=== PATIENT | male | born 1960 | race Caucasian/White ===

== ENCOUNTER 2020-09-14 10:05 | Emergency (ER) | payer BC, SELFPAY ==
--- NOTE | ~2020-09-14 | XR_ITS ---
EXAMINATION: XR knee RT min 4V DATE: 09/14/2020 10:46 INDICATION: Patellar pain and popping out of place TECHNIQUE: Anteroposterior, oblique, sunrise and crosstable lateral views of the right knee were obta ined COMPARISON: None. FINDINGS: Alignment is normal. No fracture. Joint spaces appear normal. Tiny patellar marginal osteophytes. Mo derate-sized enthesophyte at the patellar insertion of the distal quadriceps tendon. No joint effusio n/layering lipohemarthrosis. Anterior soft tissue swelling extending from the patellar to the anterio r tibial tubercle. IMPRESSION: 1. No right knee joint effusion or acute osseous abnormality. Reviewed, dictated and finalized at location B.
--- NOTE | 2020-09-14 10:12 | ED.LOWEXIN ---
HPI - Extremity Injury (Lower) General Chief Complaint: Extremity Injury, Lower Stated Complaint: right leg pain Time Seen by Provider: 09/14/20 10:11 History of Present Illness HPI Narrative: He has had RLE pain for quite some time. Yesterday he felt a pop in the right knee and had sudden worsening of the pain. It is primarily located in the lateral side of the knee at this time. Worse with knee extension. Related Data Home Medications Medication Instructions Recorded Confirmed aspirin 81 mg tablet,delayed See Rx Instructions PO DAILY 07/14/20 release atorvastatin 40 mg tablet See Rx Instructions PO DAILY 07/14/20 metoprolol tartrate 25 mg tablet See Rx Instructions .ROUTE .COMPLEX 07/14/20 minerals See Rx Instructions .ROUTE .COMPLEX 07/14/20 acuyrtxn-yhx-nmjma acid 300 1 tablet PO DAILY 07/14/20 mcg-lycopene 600 mcg-lutein 300 mcg tablet Allergies Allergy/AdvReac Type Severity Reaction Status Date / Time No Known Allergies Allergy Verified 09/14/20 10:27 Review of Systems Review of Systems: All systems reviewed & are unremarkable except as noted in HPI and below Constitutional: Constitutional: Denies chills and Denies fever(s) Cardiovascular: Cardiovascular: Denies chest pain Respiratory: Respiratory: Denies dyspnea Musculoskeletal: Musculoskeletal: Denies back pain Neurologic: Denies numbness and Denies weakness [facility] Past Medical History Medical History Bloating Chronic pain of both feet Dizziness Flatulence Forgetfulness Heart attack (~01/09/15) Sinus problem Family History Family History Father , 86 Heart failure Mother No problems noted. Social History Social History Social History: Caffeine = 1 cup daily Years smoked: 15 Smoking status: Former smoker Tobacco type: cigarettes Smoking end date: 02/10/15 Alcohol intake: never Substance use: never Exam Const: General: no acute distress and alert Orientation/consciousness: patient oriented x3 HENMT: Head: normal to inspection Cardio: Other: 2 + right DP Skin: General skin exam: normal color Rashes: no rashes Wounds: no wounds Neuro: General: patient oriented x3, moves all extremities and no focal motor deficits Speech: normal speech Extrem: Other: minimal edema anterior to patellar tendon Course Vital Signs Vital signs: Vital Signs Temperature 36.4 C L 09/14/20 10:21 Pulse Rate 66 09/14/20 10:21 Respiratory Rate 16 09/14/20 10:21 Blood Pressure 133/87 09/14/20 10:21 Pulse Oximetry 99 09/14/20 10:21 Temperature 36.4 C L 09/14/20 10:21 Pulse Rate 57 L 09/14/20 12:29 Respiratory Rate 18 09/14/20 12:29 Blood Pressure 128/78 09/14/20 12:29 Pulse Oximetry 95 09/14/20 12:29 Procedures Joint Aspiration/Injection Joint Asp./Inject. 1: Joint Aspiration Date: 09/14/20 Joint Aspiration Time: 12:03 Side of body: right Joint Aspirated: other (patella tendon) Ultrasound Guidance: No Skin Prep: Chlorhexidine Local Anesthetic: bupivacaine 0.5% Amount of anesthesia used (mL): 2 Needle Size Used: Other (27) Medication Injected, if any: Triamcinolone Acetate (40) Amount of medication injected (mL): 1 Patient Tolerated Procedure: well Complications: none MDM - Extremity Injury (Lower) MDM Narrative Medical decision making narrative: He has soft tissue swelling and tenderness over the petallar tendon. I suspect tendonitis. Medical Records Attestation: I reviewed the patient's medical records. Lab Data Attestation: I reviewed the patient's lab results. Imaging Data Radiologist's impression: ITS Impressions Knee X-Ray 09/14/20 10:49 IMPRESSION: 1. No right knee joint effusion or acute osseous
[2020-09-14 10:21] VITALS: BP 133/87; PULSE 66; RESP 16; TEMP 36.4; O2SAT 99
[2020-09-14 12:29] VITALS: BP 128/78; PULSE 57; RESP 18; O2SAT 95
== END 2020-09-14 12:31 | disposition home or self-care (01) ==
PROVIDERS: Emergency Provider Emergency Medicine; PCP Emergency Medicine
DX: M76.51 Patellar tendinitis, right knee (principal); I25.2 Old myocardial infarction; Z79.82 Long term (current) use of aspirin; Z87.891 Personal history of nicotine dependence
CPT/HCPCS: 20610; 73564; 99283

== ENCOUNTER 2020-11-07 11:05 | Outpatient (CLI) | payer BC, SELFPAY ==
--- NOTE | ~2020-11-07 | US_ITS ---
EXAMINATION: US carotid duplex BI DATE: 11/07/2020 11:39 INDICATION: Dizziness. TECHNIQUE: Grayscale, color Doppler, and pulsed Doppler images of the cervical carotid arteries were obtained. The degree of vessel stenosis is placed in one of the following categories: normal, <50%, 5 0-69%, >=70% but less than near-occlusion, near-occlusion, or total occlusion. Note that percent sten osis relative to normal distal artery lumen diameter is indirectly measured from velocity measurement s as described by Jose, et al. Radiology 2003; 229:340-346. COMPARISON: None. FINDINGS: RIGHT: The right common carotid artery (CCA) peak systolic velocity (PSV) is 79 cm/s. The right internal car otid artery (ICA) PSV is 58 cm/s. The right ICA end-diastolic velocity (EDV) is 15 cm/s. The right IC A/CCA PSV ratio is 0.7. Grayscale and color Doppler images yield an estimate of <50% diameter reducti on from plaque in the ICA. There is antegrade flow in the right vertebral artery. LEFT: The left CCA PSV is 73 cm/s. The left ICA PSV is 61 cm/s. The left ICA EDV is 12 cm/s. The left ICA/C CA PSV ratio is 0.8. Grayscale and color Doppler images yield an estimate of <50% diameter reduction from plaque in the ICA. There is antegrade flow in the left vertebral artery. IMPRESSION: 1. <50% stenosis in the right internal carotid artery. 2. <50% stenosis in the left internal carotid artery. Reviewed, dictated and finalized at location A. NESS ANALYST MANAGER
== END 2020-11-07 11:06 | disposition home or self-care (01) ==
PROVIDERS: PCP Emergency Medicine; Visit Provider Emergency Medicine
DX: R09.89 Other specified symptoms and signs involving the circulatory and respiratory systems (principal)
CPT/HCPCS: 93880

== ENCOUNTER → 2020-11-23 09:24 | Outpatient (CLI) | payer BC, SELFPAY ==
--- NOTE | ~2020-11-23 | MR_ITS ---
EXAMINATION: MR knee RT wo con DATE: 11/23/2020 10:16 INDICATION: Right knee pain. TECHNIQUE: Magnetic resonance imaging (MRI) of the right knee was performed without intravenous contr ast. Sequences included axial PD-weighted FS FSE, coronal PD-weighted FSE and PD-weighted FS FSE, sag ittal PD-weighted FSE, and sagittal T2-weighted FS FSE. COMPARISON: Right knee radiographs 09/14/2020 FINDINGS: Medial compartment: There is a complex tear of posterior horn of medial meniscus. There is extrusion of the body segment. There is cartilage surface irregularity of femoral condyle. There is shallow partial-thickness carti tiny loss of tibial condyle, worst at the central and anteromedial articular surface. There is a subc hondral fracture of medial tibial plateau with low signal fracture lines and bone marrow edema. No co rtical depression. Lateral compartment: Lateral meniscus is normal. There is cartilage surface irregularity of tibial condyle. There is deep partial thickness cartilage loss of femoral condyle involving the central articular surface. Patellofemoral compartment: There is deep partial thickness cartilage loss of patellar medial facet, median ridge, and lateral fa cet with mild subchondral edema-like marrow signal intensity. There is deep partial thickness cartila ge loss of central and lateral trochlea. Ligaments and tendons: The anterior and posterior cruciate ligaments are normal. Medial collateral ligament is normal. There are changes of prior sprain of fibular collateral ligament characterized by thickening and increased signal intensity proximally. There is mild patellar tendinopathy. Fluid: There is a moderate-sized knee joint effusion. There is mild prepatellar and superficial infrapatella r bursitis. IMPRESSION: 1. Subchondral fracture of medial tibial condyle. 2. Moderate chondrosis of lateral and patellofemoral compartments and mild chondrosis of medial vianey rtment. 3. Moderate-sized knee joint effusion. Reviewed, dictated and finalized at location A. AGE MIXER IMPRESSION: 1. Subchondral fracture of medial tibial condyle. 2. Moderate chondrosis of lateral and patellofemoral compartments and mild shantal drosis of medial compartment. 3. Moderate-sized knee joint effusion.
== END ==
PROVIDERS: PCP Emergency Medicine; Visit Provider Orthopaedic Surgery
DX: M25.461 Effusion, right knee (principal)
CPT/HCPCS: 73721

== ENCOUNTER 2025-04-27 11:30 | Outpatient (CLI) | payer MEDICARE, SELFPAY ==
--- NOTE | ~2025-04-27 | XR_ITS ---
Right Knee Technique: AP, lateral, and sunrise views were obtained. Clinical History: Arthritis Findings: No fracture or dislocation is seen. There is moderate degenerative change of the medial and patellofemoral compartments. There is mild degenerative change of the lateral compartment.. Soft tis sues are unremarkable. No joint effusion is seen. Impression: Degenerative change, as detailed above. Reviewed, dictated and finalized at location M. Impression: Degenerative change, as detailed above.
--- NOTE | ~2025-04-27 | XR_ITS ---
Left Knee Technique: AP and lateral views were obtained. Clinical History: Arthritis Findings: No fracture or dislocation is seen. There is moderate to advanced degenerative change of th e medial compartment, with medial joint ostomy formation and medial compartment narrowing. There is m oderate to advanced degenerative change of the patella femoral compartment. There is mild degenerativ e change of the lateral compartment. Soft tissues are unremarkable. No joint effusion is seen. 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 Reviewed, dictated and finalized at location M. Impression: Tricompartmental osteoarthritis, moderate to severe at the medial and patellofe moral compartment.
--- OUTSIDE RECORDS SUMMARY | 2025-04-27 13:07 | XMS_ITS | Referral Summary ---
Author Organization [facility] [address] [address] [place] [address] [address] [place] [address] Care Team Providers Care Spray Machine Tender Name Role Phone Aubrey Logan MD Primary Care Provide r Encounters Date Type Department Care Team Description 04/14/2025 Telephone [facility] Cardiology [address] [place] [address] [address] [place] [address] Won Mejia MD 04/14/2025 Results Follow-Up [facility] Cardiology [address] [facility] [address] [place] [address] Won Mejia MD Comprehensive metabolic panel, Hemoglobin A1c 04/01/2025 10:45 AM CDT Office Visit [facility] Cardiology [address] [place] [address] [address] [place] [address] Won Mejia MD 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 (Primary Dx); Hyperlipidemia LDL goal <70; Hypertriglyceridemia; Morbid obesity with BMI of 40.0-44.9, adult (HCC); Elevated glucose; Bilateral lower extremity edema from Last 3 Months Allergies No known active allergies Medications aspirin 81 mg tablet take 1 tablet by oral route every day 0 0 5 Active multivitamin tablet tablet take 1 tablet by oral route every day with food 0 0 5 Active nitroglycerin (NITROSTAT) 0.[address] 1 tablet by sublingual route at the 1st sign of attack; may repeat every 5 min until relief; if pain persists after 3 tablets in 15 min, prompt medical attention is recommended 25 2 5 Active losartan (COZAAR) 25 mg tabletIndicati ons: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 Take 1 tablet (25 mg total) by mouth daily 30 tablet 11 5 04/01/20 26 Active atorvastatin (LIPITOR) 40 mg tablet Take 1 tablet (40 mg total) by mouth daily 90 tablet 3 5 Active furosemide (LASIX) 20 mg tabletIndicati ons:Bilateral lower extremity edema Take 1 tablet (20 mg total) by mouth daily as needed (for swelling) 90 tablet 3 5 Active metoprolol tartrate (LOPRESSOR) 25 mg immediate release tablet Take 1 tablet (25 mg total) by mouth 2 (two) times a day 180 tablet 3 5 Active furosemide (LASIX) 20 mg tabletIndicati ons:Bilateral lower extremity edema TAKE 1 TABLET(20 MG) BY MOUTH DAILY NEEDED FOR SWELLING 30 tablet 3 04/01/20 25 Discontin ued(Reord er) atorvastatin (LIPITOR) 40 mg tablet TAKE 1 TABLET(40 MG) BY MOUTH DAILY 90 tablet 2 5 04/01/20 25 Discontin ued(Reord er) metoprolol tartrate (LOPRESSOR) 25 mg immediate release tablet TAKE 1 TABLET(25 MG) BY MOUTH TWICE DAILY 180 tablet 5 04/01/20 25 Discontin ued(Reord er) Active Problems Problem Noted Date Diagnosed Date Elevated glucose 04/01/2025 Bilateral lower extremity edema 11/03/2022 Morbid obesity 11/03/2022 Benign paroxysmal vertigo of left ear 12/15/2020 Assessment & Plan (12/15/2020 12:11 PM TUBING ASSEMBLER): Patient describes a 2 year history of increasing rotatory vertigo with nausea when laying specifically on his back turning his head to the left. He denies accompanying tinnitus or hearing loss or other bulbar or neurological dysfunction. His neurological examination today including Hallpike [place] testing is negative. Historically a symptoms be most suggestive of positional vertigo given the stereotyped reproducible nature of his body position that precipitates the symptoms. I will prescribe a course of physical therapy for Larry maneuver training. I will see him back in the office in 6 months time for reassessment. Hypertriglyceridemia 11/04/2019 Morbid obesity with BMI of 40.0-44.9, adult 10/19 History of tobacco use 10/08/2017 Coronary artery disease of n ative artery of campo heart with stable angina pectoris 01/28/2015 Overview (02/23/2017): CAD (coronary artery disease) History of myocardial infarction 01/28/2015 Overview (02/23/2017): History of ST elevation myocardial infarction (STEMI) Hyperlipidemia LDL goal <70 01/28/2015 Overview (02/23/2017): Hyperlipidemia Resolved Problems Problem Noted Date Diagnosed Date Resolved Date Tobacco dependence syndrome 01/28/2015 10/08/2017 Overview (02/23/2017): Tobacco abuse Social History Tobacco Use Types Packs/Day Years Used Date Smoking Tobacco: Former Cigarettes Q uit: 01/18/2015 Smokeless Tobacco: Never Tobacco Cessation:Counseling Given: Not Answered Alcohol Use Standard Drinks/Week Comments No 0 (1 standard drink = 0.6 oz pur e alcohol) Sex and Gender Information Value Date Recorded Sex Assigned at Not on file Legal Sex Male 3:35 AM TUBING ASSEMBLER Gender Identity Not on file Sexual Orientation Not on file Last Filed Vital Signs Vital Sign Reading Time Taken Comments Blood Pressure 152/90 04/01/2025 11:05 AM CDT Pulse 68 04/01/2025 11:05 AM CDT Temperature 36.4 C (97.5 F) 12/15/2020 11:30 AM TUBING ASSEMBLER Respiratory Rate - - Oxygen Saturation 95% 04/01/2025 11:05 AM CDT Inhaled Oxygen Concentration - - Weight 133.4 kg (294 lb) 04/01/2025 11:05 AM CDT Height 180.3 cm (5' 11) 04/01/2025 11:05 AM CDT Body Mass Index 41 04/01/2025 11:05 AM CDT Plan of Treatment Not on file Procedures Procedure Name Priority Date/Time Associated Diagnosis Comments HEMOGLOBIN A1C Routine 04/10/2025 12:02 PM CDT Hyperlipidemia LDL goal <70 Elevated glucose COMPREHENSIVE METABOLIC PANEL Routine 04/10/2025 12:02 PM CDT Elevated glucose POCT LIPID PANEL Routine 04/01/2025 11:0 8 AM CDT 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 For someone with known diabetes, a value <7% indicates that their diabetes is well controlled and a value greater than or equal to 7% indicates suboptimal control. A1c targets should be individualized based on duration of diabetes, age, comorbid conditions, and other considerations. Currently, no consensus exists regarding use of hemoglobin A1c for diagnosis of diabetes for children. Blood 04/10/2025 12:0 2 PM CDT 04/10/2025 12:02 PM CDT us Won Mejia MD LAB BLOOD ORDERABLES Vi l Result [facility] [address] [place] [address] * (ABNORMAL) Comprehensive metabolic panel (04/10/2025 12:02 PM CDT) Glucose 154(H) 65 - 99 mg/dL [facility] Comment: Fasting reference interval For someone without known diabetes, a glucose value >125 mg/dL indicates that they may have diabetes and this should be confirmed with a follow-up test. BUN 11 7 - 25 mg/dL [facility] Creatinine 0.83 0.70 - 1.35 mg/dL [facility] eGFR 96 > OR = 60 mL/min/1.7 3m2 [facility] BUN/creat ratio SEE NOTE: 6 - 22 (calc) [facility] Comment: Not Reported: BUN and Creatinine are within reference range. Sodium 141 135 - 146 mmol/L [facility] Potassium, pl 4.3 3.5 - 5.3 mmol/L [facility] Chloride 100 98 - 110 mmol/L [facility] CO2 34(H) 20 - 32 mmol/L [facility] Calcium 9.4 8.6 - 10.3 mg/dL [facility] Protein, sr 6.7 6.1 - 8.1 g/dL [facility] Albumin 4.3 3.6 - 5.1 g/dL [facility] GLOBULIN 2.4 1.9 - 3.7 g/dL (calc) [facility] Alb/glob ratio 1.8 1.0 - 2.5 (calc) [facility] Bilirubin, total 0.7 0.2 - 1.2 mg/dL [facility] Alk phos 107 35 - 144 U/L [facility] AST 19 10 - 35 U/L [facility] ALT (SGPT) 28 9 - 46 U/L [facility] Blood 04/10/2025 12:0 2 PM CDT 04/10/2025 12:02 PM CDT Won Mejia MD LAB BLOOD ORDERABLES Vi l Result [facility] [id number] [place] [id number] * (ABNORMAL) POCT lipid panel (04/01/2025 11:08 AM CDT) Cholesterol, POC 122 <200 MG/DL HDL, POC 25(A) >=40 mg/dL Triglycerides, POC 169(A) <=149 mg/dL LDL Cholesterol POC 63 <=129 mg/dL Chol/HDL Ratio, POC 2.5 NONE Non-HDL Cholesterol, POC 97 NONE mg/dL Cholesterol Total, POC 122 30 - 199 mg/dL Capillary blood 04/01/2025 1 1:08 AM CDT Won Mejia MD POINT OF CARE TEST ORDERA BLES Final Result from Last 3 Months Insurance [facility] MEDICARE ADVANTAGE [facility] Address: [address] [address] Care Teams Spray Machine Tender Relationship Specialty Start Date End Date Aubrey Logan MD [address] [place] [address] PCP - General Emergency Medicine 10/04/20
--- OUTSIDE RECORDS SUMMARY | 2025-04-27 13:07 | XMS_ITS | Encounter Summary ---
Author Organization [facility] Healthcare Address [address] [place] [address] Care Team Providers Care Ferry Captain Name Role Phone Aubrey Logan MD Primary Care Provide r Encounter Details Date Type Department Care Team (Latest Contact Info) Description 04/14/2025 Results Follow-Up [facility] Cardiology [address] [address] Won Mejia MD [address] [facility] [address]ST[address] [facility] [place], [place] [id number] Comprehensive metabolic panel, Hemoglobin A1c Social History Tobacco Use Types Packs/Day Years Used Date Smoking Tobacco: Former Cigarettes Q uit: 01/18/2015 Smokeless Tobacco: Never Alcohol Use Standard Drinks/Week Comments No 0 (1 standard drink = 0.6 oz pur e alcohol) Sex and Gender Information Value Date Recorded Sex Assigned at Not on file Legal Sex Male 3:35 AM WAIT STAFF Gender Identity Not on file Sexual Orientation Not on file documented as of this encounter Plan of Treatment Not on file documented as of this encounter Visit Diagnoses Not on filedocumented in this encounter Care Teams Ferry Captain Relationship Specialty Start Date End Date Aubrey Logan MD [address] [place] [address] PCP - General Emergency Medicine 10/04/20 documented as of this encounter
--- OUTSIDE RECORDS SUMMARY | 2025-04-27 13:07 | XMS_ITS | Clinical Summary ---
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 He denies accompanying tinnitus or hearing loss or other bulbar or neurological dysfunction. His neurological examination today including Hallpike [place] testing is negative. Historically a symptoms be [...] artery disease of n ative artery of little shell tribe heart with stable angina pectoris 01/28/2015 Overview (02/23/2017): CAD (coronary artery disease) History of myocardial infarction 01/28/2015 Overview (02/23/2017): History of ST elevation myocardial infarction (STEMI) Hyperlipidemia LDL goal <70 01/28/2015 Overview (02/23/2017): Hyperlipidemia Resolved Problems Problem Noted Date Diagnosed Date Resolved Date Tobacco dependence syndrome 01/28/2015 10/08/2017 Overview (02/23/2017): Tobacco abuse Encounters Date Type Department Care Team Description 04/14/2025 Telephone [facility] Cardiology [address] [place] [address] Won Mejia MD 04/14/2025 Results Follow-Up [facility] Cardiology [address] [facility] [address] [place] [address] Won Mejia MD Comprehensive metabolic panel, Hemoglobin A1c 04/01/2025 10:45 AM CDT Office Visit [facility] Cardiology [address] [place] [address] Won Mejia MD Coronary artery disease of little shell tribe artery of little shell tribe heart with stable angina pectoris (Primary Dx); Hyperlipidemia LDL goal <70; Hypertriglyceridemia; Morbid obesity with BMI of 40.0-44.9, adult (HCC); Elevated glucose; Bilateral lower extremity edema from Last 3 Months Surgical History Surgery Date Site/Laterality Comments CARDIAC STENT PLACEMENT Medical History Medical History Date Comments Hx Other Medical CAD status post inferior posteriorSTEMI with WALE t; Comments: MAF 01/28/2015 - Family History Medical History Relation Name Comments Coronary artery disease Brother 1 Diabetes Brother 1 No Known Problems Brother 2 Diabetes Father Diabetes mellit ; Heart failure Father Other Mother Alive and well; Arthritis Sister 1 Obesity Sister 1 Osteoporosis Sister 1 No Known Problems Sister 2 Relation Name Status Comments Brother 1 Alive Brother 2 Alive Father Mother Alive Sister 1 Alive Sister 2 Alive Social History Tobacco Use Types Packs/Day Years Used Date Smoking Tobacco: Former Cigarettes Q uit: 01/18/2015 Smokeless Tobacco: Never Tobacco Cessation:Counseling Given: Not Answered Alcohol Use Standard Drinks/Week Comments No 0 (1 standard drink = 0.6 oz pur e alcohol) Sex and Gender Information Value Date Recorded Sex Assigned at Not on file Legal Sex Male 3:35 AM HEALTHCARE APPLICATIONS ANALYST Gender Identity Not on file Sexual Orientation Not on file Obstetrics History Last Filed Vital Signs Vital Sign Reading Time Taken Comments Blood Pressure 152/90 04/01/2025 11:05 AM CDT Pulse 68 04/01/2025 11:05 AM CDT Temperature 36.4 C (97.5 F) 12/15/2020 11:30 AM HEALTHCARE APPLICATIONS ANALYST Respiratory Rate - - Oxygen Saturation 95% 04/01/2025 11:05 AM CDT Inhaled Oxygen Concentration - - Weight 133.4 kg (294 lb) 04/01/2025 11:05 AM CDT Height 180.3 cm (5' 11) 04/01/2025 11:05 AM CDT Body Mass Index 41 04/01/2025 11:05 AM CDT Plan of Treatment Health Maintenance Due Date Last Done Comments Colon Cancer Screening-Colonoscopy 1958 Depression Screening 1958 Fall Risk Assessment 1960 Hepatitis C Screening 1960 Prostate Cancer Screening-PSA 1958 DTaP/Tdap/Td Vaccine (1 - Tdap) 1969 Hepatitis B Screening 02/11/1976 Pneumococcal vaccine 65+ (1 of 2 - PCV) 1977 Zoster Vaccine (1 of 2) 02/11/2008 Abdominal Aortic Aneurysm (A AA) Screen 2023 Well Visit 65+ 2023 Influenza Vaccine (Season Ended) 2025 08/06/2016, 08/29/2015, 09/04/2014 Procedures Procedure Name Priority Date/Time Associated Diagnosis Comments HEMOGLOBIN A1C Routine 04/10/2025 12:02 PM CDT Hyperlipidemia LDL goal <70 Elevated glucose COMPREHENSIVE METABOLIC PANEL Routine 04/10/2025 12:02 PM CDT Elevated glucose POCT LIPID PANEL Routine 04/01/2025 11:0 8 AM CDT Coronary artery disease of little shell tribe artery of little shell tribe heart with stable angina pectoris Hyperlipidemia LDL [...] Won Mejia MD LAB BLOOD ORDERABLES Vi [place] [facility] [address] [place] [address] * (ABNORMAL) Comprehensive metabolic panel (04/10/2025 12:02 [...] LAB BLOOD ORDERABLES Vi l Result [facility] [address] [place] [id number] * (ABNORMAL) POCT lipid panel (04/01/2025 11:08 [...] Final Result from Last 3 Months Insurance [facility] MEDICARE ADVANTAGE Care Teams Health Safety Manager Relationship Specialty Start Date End Date Aubrey Logan MD [address] [place] [address] PCP - General Emergency Medicine 10/04/20
--- OUTSIDE RECORDS SUMMARY | 2025-04-27 13:07 | XMS_ITS | Encounter Summary ---
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 Name Role Phone Aubrey Logan MD Primary Care Provide r Encounter Details Date Type Department Care Team (Late st Contact Info) Description 04/14/2025 Telephone [facility] Cardiology [address] [place] [address] Won Mejia MD [address] [facility] [address] [place] [address] [facility] [address] [place] [address] [place] [address] Social History Tobacco Use Types Packs/Day Years Used Date Smoking Tobacco: Former Cigarettes Q uit: 01/18/2015 Smokeless Tobacco: Never Alcohol Use Standard Drinks/Week Comments No 0 (1 standard drink = 0.6 oz pur e alcohol) Sex and Gender Information Value Date Recorded Sex Assigned at Not on file Legal Sex Male 3:35 AM [employer] Gender Identity Not on file Sexual Orientation Not on file documented as of this encounter Miscellaneous Notes * Telephone Encounter - Kay Temple RN - 04/14/2025 3:15 PM CDT Faxed labs as requested. * Telephone Encounter - Cr Brandy - 04/14/2025 3:03 PM CDT Nathalia from Dr. Logan (PCP office) requesting most recent lab work results be faxed to their office. Thank you. Contact: documented in this encounter Plan of Treatment Not on file documented as of this encounter Visit Diagnoses Not on filedocumented in this encounter Care Teams Feed Elevator Worker Relationship Specialty Start Date End Date Aubrey Logan MD [address] [place] [address] PCP - General Emergency Medicine 10/04/20 documented as of this encounter
== END 2025-04-27 11:31 | disposition home or self-care (01) ==
PROVIDERS: PCP Emergency Medicine; Visit Provider Emergency Medicine
DX: M17.0 Bilateral primary osteoarthritis of knee (principal); M76.51 Patellar tendinitis, right knee
CPT/HCPCS: 73560